=== PATIENT | female | born 1950 | race Caucasian/White ===

== ENCOUNTER → 2017-03-20 | Outpatient (CLI) | payer BC ==
--- NOTE | 2017-03-20 13:21 | REP ---
RIGHT HAND SERIES: There is no evidence of an acute fracture, dislocation or intrinsic bone disease. There is no radiopaque foreign body visualized in the soft tissues. IMPRESSION: No fracture or dislocation. There is no radiopaque foreign body visualized in the soft tissues. Signed by Enrique Paige MD 03/20/2017 04:27 P
== END ==
LOC: M ADAMS 12:18
PROVIDERS: ATTEND Physician Assistant
DX: S61.441A Puncture wound with foreign body of right hand, initial encounter (principal); W54.0XXA Bitten by dog, initial encounter; M76.41 Tibial collateral bursitis [Pellegrini-Stieda], right leg; Y93.89 Activity, other specified; Y99.8 Other external cause status; Y92.89 Other specified places as the place of occurrence of the external cause

== ENCOUNTER → 2018-01-23 | Outpatient (CLI) | payer BC, MEDICARE ==
[2018-01-23 14:02] LABS: AMORPHOUS SEDIMENT SMALL (NEGATIVE); APPEARANCE, URINE HAZY (CLEAR); BACTERIA, URINE AUTO 1+ (NEGATIVE); BILIRUBIN, URINE AUTO NEGATIVE (NEGATIVE); BLOOD, URINE BLOOD NEGATIVE (NEGATIVE); COLOR, URINE YELLOW (YELLOW); GLUCOSE, URINE (UA) AUTO NEGATIVE (NEGATIVE); KETONE, URINE AUTO NEGATIVE (NEGATIVE); LEUKOCYTE ESTERASE, URINE AUTO NEGATIVE (NEGATIVE); NITRITE, URINE AUTO NEGATIVE (NEGATIVE); PROTEIN, URINE AUTO NEGATIVE (NEGATIVE); RBC, URINE AUTO 1 /HPF (0-3); SPECIFIC GRAVITY URINE AUTO 1.015 (1.002-1.035); SQUAMOUS EPITHELIAL CELL UR AU 3 /HPF (0-6); UROBILINOGEN, URINE AUTO 0.2 mg/dL (0.0-2.0); WBC, URINE AUTO 0 /HPF (0-3)
== END ==
LOC: M LAB 11:07
DX: N39.0 Urinary tract infection, site not specified (principal)
CPT/HCPCS: 81001

== ENCOUNTER 2018-02-06 16:10 | Emergency (ER) | payer MEDICARE, BC ==
[2018-02-06 17:29] LABS: BASO % 0.1 % (0.0-1.0); EOS % 0.3 % (0.0-3.0); HEMATOCRIT 37.1 % (36.0-47.0); HEMOGLOBIN 12.5 g/dl (12.0-15.5); IMMATURE GRANULOCYTE % 0.5 % (0-3.0); LYMPH # 1.1 10^3/uL (1.5-4.5); LYMPH % 8.3 % (24.0-44.0); MEAN CORPUSCULAR HGB CONC 33.7 g/dl (32.0-36.5); MEAN CORPUSCULAR VOLUME 92.1 fl (80.0-96.0); MONO # 0.8 10^3/uL (0.0-0.8); NEUTROPHILS # 11.5 10^3/uL (1.8-7.7); NEUTROPHILS % 84.8 % (36.0-66.0); PLATELET COUNT, AUTOMATED 268 10^3/uL (150-450); RED BLOOD COUNT 4.03 10^6/uL (4.00-5.40); RED CELL DISTRIBUTION WIDTH 13.1 % (11.5-14.5); WHITE BLOOD COUNT 13.5 10^3/uL (4.0-10.0)
[2018-02-06] MEDS: ONDANSETRON 4MG/2ML VIAL (J2405) IV (17:44)
[2018-02-06] MEDS: NS 1,000 ML IV (17:44)
[2018-02-06] MEDS: FLEET OIL RETENTION ENEMA PR (17:48)
[2018-02-06 17:53] LABS: ALBUMIN 3.4 GM/DL (3.2-5.2); ALBUMIN/GLOBULIN RATIO 0.72 (1.00-1.93); ALKALINE PHOSPHATASE 114 U/L (45-117); ALT/SGPT 23 U/L (12-78); ANION GAP 9 MEQ/L (8-16); AST/SGOT 15 U/L (7-37); BILIRUBIN,TOTAL 0.9 MG/DL (0.2-1.0); BLOOD UREA NITROGEN 10 MG/DL (7-18); CALCIUM LEVEL 8.6 MG/DL (8.8-10.2); CARBON DIOXIDE LEVEL 24 MEQ/L (21-32); CHLORIDE LEVEL 105 MEQ/L (98-107); CREATININE FOR GFR 0.83 MG/DL (0.55-1.30); GLOMERULAR FILTRATION RATE > 60.0 (>45); GLUCOSE, FASTING 105 MG/DL (70-100); POTASSIUM SERUM 4.1 MEQ/L (3.5-5.1); SODIUM LEVEL 138 MEQ/L (136-145); TOTAL PROTEIN 8.1 GM/DL (6.4-8.2)
[2018-02-06] MEDS: MAGNESIUM CITRATE 300 ML BTL PO (18:09)
[2018-02-06] MEDS: ONDANSETRON 4 MG ORAL DISINTEGRATING TAB (Q0162 PER 1MG) PO (20:54)
[2018-02-06] MEDS: GOLYTELY SOLN 4000 ML BTL PO (20:54)
[2018-02-06] MEDS: LevoFLOXacin 500 MG TABLET PO (20:54)
== END 2018-02-06 20:56 | disposition home or self-care (01) ==
LOC: M ED 16:10
DX: K59.00 Constipation, unspecified (principal); I10 Essential (primary) hypertension; E78.00 Pure hypercholesterolemia, unspecified; Z79.890 Hormone replacement therapy; Z79.899 Other long term (current) drug therapy; Z79.82 Long term (current) use of aspirin; Z98.890 Other specified postprocedural states; Z87.891 Personal history of nicotine dependence
CPT/HCPCS: J2405

== ENCOUNTER → 2018-05-04 | Outpatient (CLI) | payer MEDICARE, BC ==
[2018-05-04 20:05] LABS: BASO % 0.3 % (0.0-1.0); EOS # 0.1 10^3/uL (0.0-0.50); EOS % 1.6 % (0.0-3.0); HEMATOCRIT 39.8 % (36.0-47.0); HEMOGLOBIN 13.3 g/dl (12.0-15.5); IMMATURE GRANULOCYTE % 0.3 % (0-3.0); LYMPH % 41.1 % (24.0-44.0); MEAN CORPUSCULAR HEMOGLOBIN 31.2 pg (27.0-33.0); MEAN CORPUSCULAR HGB CONC 33.4 g/dl (32.0-36.5); MEAN CORPUSCULAR VOLUME 93.4 fl (80.0-96.0); MONO # 0.6 10^3/uL (0.0-0.8); MONO % 7.4 % (0.0-5.0); NEUTROPHILS # 3.7 10^3/uL (1.8-7.7); NEUTROPHILS % 49.3 % (36.0-66.0); PLATELET COUNT, AUTOMATED 244 10^3/uL (150-450); RED BLOOD COUNT 4.26 10^6/uL (4.00-5.40); RED CELL DISTRIBUTION WIDTH 12.6 % (11.5-14.5); WHITE BLOOD COUNT 7.4 10^3/uL (4.0-10.0)
[2018-05-04 20:31] LABS: ALBUMIN 3.6 GM/DL (3.2-5.2); ALBUMIN/GLOBULIN RATIO 0.92 (1.00-1.93); ALKALINE PHOSPHATASE 109 U/L (45-117); ALT/SGPT 30 U/L (12-78); ANION GAP 7 MEQ/L (8-16); AST/SGOT 21 U/L (7-37); BILIRUBIN,TOTAL 0.4 MG/DL (0.2-1.0); BLOOD UREA NITROGEN 12 MG/DL (7-18); CARBON DIOXIDE LEVEL 32 MEQ/L (21-32); CHLORIDE LEVEL 103 MEQ/L (98-107); GLOMERULAR FILTRATION RATE > 60.0 (>45); GLUCOSE, FASTING 75 MG/DL (70-100); LIPASE 115 U/L (73-393); POTASSIUM SERUM 4.4 MEQ/L (3.5-5.1); SODIUM LEVEL 142 MEQ/L (136-145); TOTAL PROTEIN 7.5 GM/DL (6.4-8.2)
[2018-05-05 12:30] LABS: BACTERIA, URINE AUTO NEGATIVE (NEGATIVE); RBC, URINE AUTO 0 /HPF (0-3); SQUAMOUS EPITHELIAL CELL UR AU 1 /HPF (0-6); WBC, URINE AUTO 0 /HPF (0-3)
== END ==
LOC: M ADAMS 18:45
DX: R10.11 Right upper quadrant pain (principal)
CPT/HCPCS: 83690

== ENCOUNTER → 2019-02-26 | Outpatient (REF) | payer MEDICARE, BC ==
[~2019-02-26] MED LIST: ALL10TAB28 PO; ASPI81CH49 PO; COLA100C5 PO; DULC5TAB PO; ESTR2TAB2 PO; FLUO60TA6 PO; MAXA10TA15 PO; OMEP20CA3 PO; SIMV20TA2 PO; VALA1TAB2 PO; VITA2000 PO; WELLTAB40 PO; ZOFR4TAB14 PO
== END ==
LOC: M LAB REF 12:09
PROVIDERS: ATTEND Physician Assistant Medical
DX: M54.5 Low back pain (principal); Z79.82 Long term (current) use of aspirin

== ENCOUNTER 2019-03-24 20:21 | Emergency (ER) | payer MEDICARE, BC ==
[~2019-03-24] VITALS: Ht 165.1 cm; Wt 86.4 kg
[2019-03-24] MEDS ORDERED: AUGMENTIN 875 MG TAB PO ONE (23:00)
[2019-03-24] MEDS ORDERED: AUGM875T28 PO (23:50)
[2019-03-24 23:55] VITALS: BP 119/58
--- NOTE | 2019-03-25 08:14 | REP ---
Left forearm two views: There is no acute fracture or dislocation. There are no comparison studies in the film file. There is soft tissue edema adjacent to the distal ulna. T There are no calcifications or foreign bodies. Impression: Soft tissue edema at the distal ulna. No acute fracture. Electronically Signed by Enrique Clemens MD 03/25/2019 08:06 A
== END 2019-03-24 23:57 | disposition home or self-care (01) ==
LOC: M ED 20:21
DX: S51.812A Laceration without foreign body of left forearm, initial encounter (principal); W54.0XXA Bitten by dog, initial encounter; Y92.018 Other place in single-family (private) house as the place of occurrence of the external cause; Z79.899 Other long term (current) drug therapy; Z79.82 Long term (current) use of aspirin

== ENCOUNTER 2019-03-26 13:36 | Emergency (ER) | payer MEDICARE, BC ==
[~2019-03-26] VITALS: Ht 165.1 cm; Wt 86.4 kg
[~2019-03-26 13:36] MED LIST changes: +AUGM875T28 PO
[2019-03-26] MEDS ORDERED: LOSA50TA88 (13:48)
[2019-03-26 14:57] LABS: BASO % 0.3 % (0.0-1.0); EOS # 0.1 10^3/uL (0.0-0.50); EOS % 1.3 % (0.0-3.0); HEMATOCRIT 39.7 % (36.0-47.0); HEMOGLOBIN 13.4 g/dl (12.0-15.5); LYMPH # 2.2 10^3/uL (1.5-4.5); MEAN CORPUSCULAR HEMOGLOBIN 32.8 pg (27.0-33.0); MEAN CORPUSCULAR HGB CONC 33.8 g/dl (32.0-36.5); MEAN CORPUSCULAR VOLUME 97.3 fl (80.0-96.0); MONO # 0.4 10^3/uL (0.0-0.8); MONO % 6.7 % (0.0-5.0); NEUTROPHILS # 3.4 10^3/uL (1.8-7.7); NEUTROPHILS % 55.5 % (36.0-66.0); PLATELET COUNT, AUTOMATED 209 10^3/uL (150-450); RED BLOOD COUNT 4.08 10^6/uL (4.00-5.40); WHITE BLOOD COUNT 6.1 10^3/uL (4.0-10.0)
[2019-03-26 15:19] LABS: BLOOD UREA NITROGEN 17 MG/DL (7-18); C REACTIVE PROTEIN QUANTITATIV 1.35 MG/DL (0.00-0.30); CALCIUM LEVEL 8.7 MG/DL (8.8-10.2); CARBON DIOXIDE LEVEL 30 MEQ/L (21-32); CHLORIDE LEVEL 104 MEQ/L (98-107); CREATININE FOR GFR 0.84 MG/DL (0.55-1.30); GLOMERULAR FILTRATION RATE > 60.0 (>45); GLUCOSE, FASTING 113 MG/DL (70-100); POTASSIUM SERUM 3.8 MEQ/L (3.5-5.1); SODIUM LEVEL 140 MEQ/L (136-145)
[2019-03-26 15:37] LABS: ERYTHROCYTE SEDIMENTATION RATE 30 mm/hr (0-30)
[2019-03-26 17:27] VITALS: BP 122/75
[2019-03-26] MEDS ORDERED: CLINDAMYCIN 150 MG CAP PO ONE (18:30)
[2019-03-26] MEDS ORDERED: CLEO300C2 PO (18:33)
== END 2019-03-26 18:45 | disposition home or self-care (01) ==
LOC: M ED 13:36
DX: S51.852A Open bite of left forearm, initial encounter (principal); L08.9 Local infection of the skin and subcutaneous tissue, unspecified; W54.0XXA Bitten by dog, initial encounter; Y92.89 Other specified places as the place of occurrence of the external cause; I10 Essential (primary) hypertension; E78.5 Hyperlipidemia, unspecified; Z79.899 Other long term (current) drug therapy; Z79.2 Long term (current) use of antibiotics; Z79.890 Hormone replacement therapy; Z79.82 Long term (current) use of aspirin; Z90.710 Acquired absence of both cervix and uterus

== ENCOUNTER → 2019-07-24 | Outpatient (CLI) | payer MEDICARE, BC ==
[~2019-07-24] MED LIST changes: -ALL10TAB28 PO; +ALL10TAB29 PO; +CLEO300C2 PO; +LOSA50TA88; -OMEP20CA3 PO; +OMEP20CA4 PO
--- NOTE | 2019-07-24 09:56 | REP ---
Right shoulder: Three views. History: Pain in the right shoulder. Findings: The right glenohumeral and acromioclavicular joints are normally aligned. There is osteoarthritic hypertrophy at the AC joint. Periarticular soft tissues are unremarkable. No erosive changes seen. 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 No acute bony abnormality. Electronically Signed by Donovan Meade MD 07/24/2019 09:47 A
== END ==
LOC: M ADAMS 09:31
PROVIDERS: ATTEND Physician Assistant Medical
DX: M19.011 Primary osteoarthritis, right shoulder (principal)

== ENCOUNTER → 2019-11-26 | Outpatient (REF) | payer MEDICARE, BC ==
[~2019-11-26] MED LIST changes: +OMEP1CAP73 PO; -OMEP20CA4 PO; -SIMV20TA2 PO; +SIMV20TA22 PO; -VALA1TAB2 PO; +VALA1TAB5 PO
[2019-11-26 19:38] LABS: APPEARANCE, URINE HAZY (CLEAR); BACTERIA, URINE AUTO 1+ (NEGATIVE); BILIRUBIN, URINE AUTO NEGATIVE (NEGATIVE); BLOOD, URINE BLOOD NEGATIVE (NEGATIVE); COLOR, URINE YELLOW (YELLOW); GLUCOSE, URINE (UA) AUTO NEGATIVE (NEGATIVE); KETONE, URINE AUTO NEGATIVE (NEGATIVE); LEUKOCYTE ESTERASE, URINE AUTO NEGATIVE (NEGATIVE); MUCUS, URINE SMALL (NEGATIVE); NITRITE, URINE AUTO NEGATIVE (NEGATIVE); PROTEIN, URINE AUTO NEGATIVE (NEGATIVE); RBC, URINE AUTO 2 /HPF (0-3); SPECIFIC GRAVITY URINE AUTO 1.012 (1.002-1.035); SQUAMOUS EPITHELIAL CELL UR AU 9 /HPF (0-6); UROBILINOGEN, URINE AUTO 0.2 mg/dL (0.0-2.0); WBC, URINE AUTO 2 /HPF (0-3)
== END ==
LOC: M LAB REF 19:16
PROVIDERS: ATTEND Physician Assistant
DX: N39.0 Urinary tract infection, site not specified (principal)

== ENCOUNTER 2019-12-04 00:29 | Emergency (ER) | payer MEDICARE, BC ==
[~2019-12-04 00:29] MED LIST changes: -MIRA3350 PO
[2019-12-04 01:41] LABS: BASO % 0.3 % (0.0-1.0); EOS # 0.1 10^3/uL (0.0-0.5); EOS % 0.9 % (0.0-3.0); HEMATOCRIT 40.6 % (36.0-47.0); HEMOGLOBIN 13.6 g/dl (12.0-15.5); LYMPH # 2.1 10^3/uL (1.5-5.0); LYMPH % 20.4 % (24.0-44.0); MEAN CORPUSCULAR HEMOGLOBIN 31.6 pg (27.0-33.0); MEAN CORPUSCULAR HGB CONC 33.5 g/dl (32.0-36.5); MEAN CORPUSCULAR VOLUME 94.2 fl (80.0-96.0); MONO # 0.8 10^3/uL (0.0-0.8); MONO % 7.3 % (0.0-5.0); NEUTROPHILS # 7.3 10^3/uL (1.5-8.5); NEUTROPHILS % 70.9 % (36.0-66.0); PLATELET COUNT, AUTOMATED 247 10^3/uL (150-450); RED BLOOD COUNT 4.31 10^6/uL (4.00-5.40); WHITE BLOOD COUNT 10.3 10^3/uL (4.0-10.0)
[2019-12-04 02:21] LABS: BLOOD UREA NITROGEN 13 MG/DL (7-18); CALCIUM LEVEL 8.6 MG/DL (8.8-10.2); CARBON DIOXIDE LEVEL 29 MEQ/L (21-32); CHLORIDE LEVEL 102 MEQ/L (98-107); CK-MB VALUE MASS 1.3 NG/ML (<3.6); CPK CREATINE PHOSPHOKINASE 93 U/L (26-192); CREATININE FOR GFR 0.87 MG/DL (0.55-1.30); FREE T4 0.98 NG/DL (0.76-1.46); GLOMERULAR FILTRATION RATE > 60.0 (>45); GLUCOSE, FASTING 117 MG/DL (70-100); MAGNESIUM LEVEL 1.8 MG/DL (1.8-2.4); POTASSIUM SERUM 3.9 MEQ/L (3.5-5.1); SODIUM LEVEL 137 MEQ/L (136-145); TROPONIN I < 0.02 NG/ML (< 0.10)
[2019-12-04] MEDS: GASTROGRAFIN SOLUTION 30ML PO SCH ×2 (03:24→04:01)
[2019-12-04] MEDS ORDERED: ISOVUE-370 76% 100ML VIAL (Q9967) As Ordered ONE (04:52)
--- NOTE | 2019-12-04 05:39 | REPVR ---
PROCEDURE INFORMATION: Exam: CT Abdomen and Pelvis With Contrast Exam date and time: 12/04/19 (4:59am) Age: 69 years old Clinical indication: Generalized abdominal pain. Diverticulitis. TECHNIQUE: Imaging protocol: Computed tomography of the abdomen and pelvis with intravenous contrast. Radiation optimization: All CT scans at this facility use at least one of these dose optimization techniques: automated exposure control; mA and/or kV adjustment per patient size (includes targeted exams where dose is matched to clinical indication); or iterative reconstruction. Contrast material: Iso Contrast volume: 100 ml Contrast route: Antecubital vein COMPARISON: Abdominal series + CXR of 12/04/19 FINDINGS: Liver: Normal. No solid mass. Gallbladder and bile ducts: Normal. No calcified stones. No ductal dilatation. Pancreas: Normal. No ductal dilatation. Spleen: Normal. No splenomegaly. Adrenals: Normal. No mass. Kidneys and ureters: Normal. No hydronephrosis. Stomach and bowel: Unremarkable. No bowel to obstruction. No mucosal thickening. Appendix: No evidence of appendicitis. Intraperitoneal space: Unremarkable. No free air. No significant fluid collection. Vasculature: Unremarkable. No abdominal aortic aneurysm. Lymph nodes: Unremarkable. No enlarged lymph nodes. Bladder: Distended urinary bladder. No stones nor mass. Reproductive: Unremarkable as visualized. Bones/joints: Unremarkable. No acute fracture. Soft tissues: Unremarkable. IMPRESSION: No acute findings. No acute bowel pathology. No evidence of diverticulitis. Electronically signed by: Mirlande Merchant On 12/04/2019 05:38:58 AM
[2019-12-04 06:06] LABS: CK-MB VALUE MASS < 1.0 NG/ML (<3.6); CPK CREATINE PHOSPHOKINASE 73 U/L (26-192); MB/CK RELATIVE INDEX 1.37 (< OR =4); TROPONIN I < 0.02 NG/ML (< 0.10)
[2019-12-04] MEDS ORDERED: MIRA3350 PO (06:15)
[2019-12-04 06:42] VITALS: BP 128/71
--- NOTE | 2019-12-04 07:25 | ECGEPIP ---
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
--- NOTE | 2019-12-04 07:26 | ECGEPIP ---
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
--- NOTE | 2019-12-05 07:54 | REP ---
ABDOMINAL SERIES: Supine and erect views of the abdomen demonstrate no free air and no evidence for bowel obstruction. No dilated small bowel loops are seen. Moderate fecal material is seen in the left colon. Metallic clips are seen in the upper abdomen. There are mild degenerative changes of the spine. An accompanying view of the chest demonstrates no acute infiltrate. The heart is normal in size, and the mediastinal silhouette is unremarkable. IMPRESSION: No free air or obstruction. Electronically Signed by Enrique Paige MD 12/05/2019 06:00 P
== END 2019-12-04 06:44 | disposition home or self-care (01) ==
LOC: EDBD 00:29 → M ED 00:29
DX: R55 Syncope and collapse (principal); R19.4 Change in bowel habit; K59.00 Constipation, unspecified; R42 Dizziness and giddiness; R53.1 Weakness; I10 Essential (primary) hypertension; E78.00 Pure hypercholesterolemia, unspecified
CPT/HCPCS: 74021; 74177; 80048; 82040; 82550; 82553; 83735; 84439; 84443; 84484; 85025; 93005; 93041; 94760; 99285; Q9963; Q9967

== ENCOUNTER → 2019-12-04 | Outpatient (REF) | payer MEDICARE, BC ==
[~2019-12-04] MED LIST changes: +MIRA3350 PO
== END ==
LOC: M LAB REF 11:55
PROVIDERS: ATTEND Family Medicine
DX: E83.51 Hypocalcemia (principal)

== ENCOUNTER 2021-12-20 13:08 | Emergency (ER) | payer MEDICARE, BC ==
[~2021-12-20] VITALS: Ht 165.1 cm; Wt 90.7 kg
[~2021-12-20 13:08] MED LIST changes: -ALL10TAB29 PO; +CETI-24 PO; -ESTR2TAB2 PO; +ESTR2TAB3 PO; +LOSA50TA28; -LOSA50TA88; +MIRA3350 PO
[2021-12-20] MEDS ORDERED: LIDOCAINE 1% MDV 20ML VIAL SC ONE (19:10)
[2021-12-20] MEDS ORDERED: BOOSTRIX/ADACEL VACCINE (DIPHTH/PERTUSS/ACELL/TETANUS) 0.5ML SYR IM ONE (19:10)
[2021-12-20] MEDS ORDERED: NEOSPORIN OINT 0.9 GM PKT TOP ONE (19:50)
[2021-12-20] MEDS ORDERED: BACI500O8 TOP (20:01)
[2021-12-20 20:07] VITALS: BP 103/88
== END 2021-12-20 20:11 | disposition home or self-care (01) ==
LOC: M ED 13:08
DX: S61.412A Laceration without foreign body of left hand, initial encounter (principal); W26.8XXA Contact with other sharp object(s), not elsewhere classified, initial encounter; Y92.009 Unspecified place in unspecified non-institutional (private) residence as the place of occurrence of the external cause; Y93.9 Activity, unspecified; Y99.9 Unspecified external cause status

== ENCOUNTER 2022-07-19 15:22 | Emergency (ER) | payer MEDICARE, BC ==
[~2022-07-19] VITALS: Ht 165.1 cm; Wt 87.3 kg
[~2022-07-19 15:22] MED LIST changes: +BACI500O8 TOP
[2022-07-19] MEDS ORDERED: PHEN37.58 (15:39)
[2022-07-19] MEDS ORDERED: TOPI25TA10 (15:39)
[2022-07-19 16:26] LABS: BASO % 0.2 % (0.0-1.0); EOS # 0.2 10^3/uL (0.0-0.5); EOS % 1.9 % (0.0-3.0); HEMATOCRIT 41.2 % (36.0-47.0); HEMOGLOBIN 13.5 g/dl (12.0-15.5); LYMPH % 36.2 % (24.0-44.0); MEAN CORPUSCULAR HEMOGLOBIN 31.6 pg (27.0-33.0); MEAN CORPUSCULAR HGB CONC 32.8 g/dl (32.0-36.5); MEAN CORPUSCULAR VOLUME 96.5 fl (80.0-96.0); MONO # 0.5 10^3/uL (0.0-0.8); MONO % 5.8 % (2.0-8.0); NEUTROPHILS # 4.5 10^3/uL (1.5-8.5); NEUTROPHILS % 55.2 % (36.0-66.0); PLATELET COUNT, AUTOMATED 273 10^3/uL (150-450); RED BLOOD COUNT 4.27 10^6/uL (4.00-5.40); WHITE BLOOD COUNT 8.3 10^3/uL (4.0-10.0)
[2022-07-19] MEDS ORDERED: GI COCKTAIL 50ML BTL(HYOSCYAMINE/MAALOX/LIDOCAINE VISCOUS)(1:3:1) PO ONE (16:45)
[2022-07-19 16:53] LABS: CPK CREATINE PHOSPHOKINASE 136 U/L (26-192)
[2022-07-19 17:01] LABS: ALBUMIN 3.5 GM/DL (3.2-5.2); ALT/SGPT 30 U/L (12-78); BILIRUBIN,DIRECT 0.1 MG/DL (0.0-0.2); BILIRUBIN,TOTAL 0.3 MG/DL (0.2-1.0); BLOOD UREA NITROGEN 17 MG/DL (7-18); CALCIUM LEVEL 9.1 MG/DL (8.8-10.2); CARBON DIOXIDE LEVEL 27 MEQ/L (21-32); CHLORIDE LEVEL 104 MEQ/L (98-107); CREATININE FOR GFR 0.81 MG/DL (0.55-1.30); FREE T4 0.78 NG/DL (0.76-1.46); GLOMERULAR FILTRATION RATE > 60.0 (>39); GLUCOSE, FASTING 88 MG/DL (70-100); LIPASE 119 U/L (73-393); NT-PRO BNP 97 PG/ML (<125); POTASSIUM SERUM 3.9 MEQ/L (3.5-5.1); SODIUM LEVEL 135 MEQ/L (136-145); TOTAL PROTEIN 7.5 GM/DL (6.4-8.2)
[2022-07-19 17:46] LABS: CPK CREATINE PHOSPHOKINASE 108 U/L (26-192)
[2022-07-19 18:45] VITALS: BP 156/74
[2022-07-19] MEDS ORDERED: SUCR1SS PO (18:51)
[2022-07-19] MEDS ORDERED: OMEP-173 PO (18:51)
== END 2022-07-19 19:04 | disposition home or self-care (01) ==
LOC: M ED 15:22
DX: K29.70 Gastritis, unspecified, without bleeding (principal); K21.9 Gastro-esophageal reflux disease without esophagitis; I44.0 Atrioventricular block, first degree; I10 Essential (primary) hypertension; E78.5 Hyperlipidemia, unspecified; F41.9 Anxiety disorder, unspecified; F33.1 Major depressive disorder, recurrent, moderate; Z79.811 Long term (current) use of aromatase inhibitors; Z79.810 Long term (current) use of selective estrogen receptor modulators (SERMs); Z79.899 Other long term (current) drug therapy

== ENCOUNTER 2022-07-21 14:56 | Emergency (ER) | payer MEDICARE, BC ==
[~2022-07-21] VITALS: Ht 165.1 cm; Wt 88.2 kg
[~2022-07-21 14:56] MED LIST changes: +OMEP-173 PO; +PHEN37.58; +SUCR1SS PO; +TOPI25TA10
[2022-07-21 14:57] VITALS: BP 131/66
== END 2022-07-21 17:41 | disposition left against medical advice (07) ==
LOC: M ED 14:56
DX: Z53.21 Procedure and treatment not carried out due to patient leaving prior to being seen by health care provider (principal)

== ENCOUNTER → 2023-01-02 | Outpatient (CLI) | payer MEDICARE, BC | LOC: M RAD 08:29 | PROVIDERS: ATTEND Family Medicine | DX: F17.211 Nicotine dependence, cigarettes, in remission (principal) ==

== ENCOUNTER → 2023-06-05 | Outpatient (CLI) | payer MEDICARE, BC ==
[~2023-06-05] MED LIST changes: -MAXA10TA15 PO; +RIZA10TA66 PO
[2023-06-05 14:42] LABS: FREE T4 0.91 NG/DL (0.89-1.76)
[2023-06-05 14:43] LABS: THYROID STIMULATING HORMONE 2.502 uIU/ML (0.55-4.78)
[2023-06-05 14:47] LABS: FOLATE 20.12 NG/ML (>5.4); URIC ACID 5.1 MG/DL (3.1-7.8)
== END ==
LOC: M PLALAB 10:04
PROVIDERS: ATTEND Psychiatry & Neurology Neurology
DX: E07.9 Disorder of thyroid, unspecified (principal); E11.42 Type 2 diabetes mellitus with diabetic polyneuropathy; M10.9 Gout, unspecified; E53.8 Deficiency of other specified B group vitamins

== ENCOUNTER 2024-07-26 09:20 | Day surgery (SDC) | payer MEDICARE, BC ==
[~2024-07-26] VITALS: Ht 165.1 cm; Wt 85.4 kg
[~2024-07-26 09:20] MED LIST changes: +B6/F1CAP PO; +BIOT1CAP2 PO; +DAILTAB63 PO; -LOSA50TA28; +LOSA50TA28 PO; +LR 1,000 ML IV SCH; +MELO7.5T35 PO; +MONT10TA97 PO; +MOVE1TAB PO; +TIZA2TA PO; +TUME1CAP PO
[2024-07-26] MEDS ORDERED: MIDAZOLAM INJ 2MG/2ML VIAL As Ordered ONE (10:46)
[2024-07-26] MEDS ORDERED: fentaNYL 100 MCG/2 ML INJECTION As Ordered ONE (10:46)
[2024-07-26] MEDS: FLURBIPROFEN 0.03% OPHTH SOLN 2.5 ML OD SCH (10:59)
[2024-07-26] MEDS: ATROPINE SULFATE 1% OPHTH SOLN 2ML BTL OD SCH (10:59)
[2024-07-26] MEDS: PHENYLEPHRINE 2.5% OPHTH SOL 2ML OD SCH (10:59)
[2024-07-26] MEDS: TETRACAINE 0.5% OPHTH SOLN 4ML OD SCH (10:59)
[2024-07-26] MEDS: LIDOCAINE 1% SDV 5ML VIAL As Ordered ONE (12:05)
[2024-07-26] MEDS: CEFUROXIME 1MG/0.1ML INTRACAMERAL INJ As Ordered ONE (12:10)
[2024-07-26 12:30] VITALS: BP 159/78; TEMP 97; O2SAT 95
== END 2024-07-26 12:50 | disposition home or self-care (01) ==
LOC: M SDC 09:20
PROVIDERS: ATTEND Ophthalmology
DX: H25.11 Age-related nuclear cataract, right eye (principal); I10 Essential (primary) hypertension; E78.5 Hyperlipidemia, unspecified; K57.92 Diverticulitis of intestine, part unspecified, without perforation or abscess without bleeding; K21.9 Gastro-esophageal reflux disease without esophagitis; F41.9 Anxiety disorder, unspecified; F32.A Depression, unspecified; G43.909 Migraine, unspecified, not intractable, without status migrainosus; G47.33 Obstructive sleep apnea (adult) (pediatric); Z79.899 Other long term (current) drug therapy
CPT/HCPCS: 66984; J0697; J2250; J3010; V2632

== ENCOUNTER 2024-08-02 09:44 | Day surgery (SDC) | payer MEDICARE, BC ==
[~2024-08-02] VITALS: Ht 165.1 cm; Wt 86.2 kg
[~2024-08-02 09:44] MED LIST changes: +fentaNYL 100 MCG/2 ML INJECTION As Ordered ONE
[2024-08-02] MEDS: ATROPINE SULFATE 1% OPHTH SOLN 2ML BTL OS SCH (11:23)
[2024-08-02] MEDS: FLURBIPROFEN 0.03% OPHTH SOLN 2.5 ML OS SCH (11:23)
[2024-08-02] MEDS: TETRACAINE 0.5% OPHTH SOLN 4ML OS SCH (11:23)
[2024-08-02] MEDS: PHENYLEPHRINE 2.5% OPHTH SOL 2ML OS SCH (11:23)
[2024-08-02] MEDS: LIDOCAINE 1% SDV 5ML VIAL As Ordered ONE (12:53)
[2024-08-02] MEDS ORDERED: MIDAZOLAM INJ 2MG/2ML VIAL As Ordered ONE (12:53)
[2024-08-02] MEDS: CEFUROXIME 1MG/0.1ML INTRACAMERAL INJ As Ordered ONE (13:01)
[2024-08-02 13:10] VITALS: BP 125/60; TEMP 96.9; O2SAT 96
== END 2024-08-02 13:28 | disposition home or self-care (01) ==
LOC: M SDC 09:44
PROVIDERS: ATTEND Ophthalmology
DX: H25.12 Age-related nuclear cataract, left eye (principal); I10 Essential (primary) hypertension; E78.5 Hyperlipidemia, unspecified; K57.92 Diverticulitis of intestine, part unspecified, without perforation or abscess without bleeding; K21.9 Gastro-esophageal reflux disease without esophagitis; F41.9 Anxiety disorder, unspecified; F32.A Depression, unspecified; G43.909 Migraine, unspecified, not intractable, without status migrainosus; Z87.891 Personal history of nicotine dependence; Z79.899 Other long term (current) drug therapy
CPT/HCPCS: 66984; J0697; J2250; J3010; V2632

== ENCOUNTER → 2025-02-01 | Outpatient (CLI) | payer MEDICARE, BC ==
[~2025-02-01] MED LIST changes: -LR 1,000 ML IV SCH; +TOPI-256; -TOPI25TA10; -fentaNYL 100 MCG/2 ML INJECTION As Ordered ONE
== END ==
LOC: M SLEEP 20:00
PROVIDERS: ATTEND Physician Assistant
DX: G47.33 Obstructive sleep apnea (adult) (pediatric) (principal)

== ENCOUNTER → 2025-04-10 | Outpatient (CLI) | payer MEDICARE, BC | LOC: M SLEEP 20:00 | PROVIDERS: ATTEND Physician Assistant | DX: G47.33 Obstructive sleep apnea (adult) (pediatric) (principal) ==

== ENCOUNTER 2025-05-05 17:22 | Emergency (ER) | payer MEDICARE, BC ==
[2025-05-05 18:31] LABS: BASO # 0.0 10^3/uL (0.0-0.2); BASO % 0.3 % (0.0-1.0); EOS # 0.1 10^3/uL (0.0-0.5); EOS % 1.4 % (0.0-3.0); LYMPH # 1.7 10^3/uL (1.5-5.0); LYMPH % 24.0 % (24.0-44.0); MONO # 0.5 10^3/uL (0.0-0.8); MONO % 7.3 % (2.0-8.0); NEUTROPHILS # 4.8 10^3/uL (1.5-8.5); NEUTROPHILS % 66.9 % (36.0-66.0); PLATELET COUNT, AUTOMATED 220 10^3/uL (150-450)
[2025-05-05] MEDS: MORPHINE 4 MG/ML 1 ML VIAL IV PRN (18:32)
[2025-05-05] MEDS ORDERED: ISOVUE-370 76% 100 ML VIAL As Ordered ONE (18:33)
[2025-05-05 18:45] LABS: INR 0.94
[2025-05-05 19:07] LABS: ALT/SGPT 25 U/L (7.0-40); AST/SGOT 24 U/L (<34); CALCIUM LEVEL 8.6 MG/DL (8.3-10.6); CARBON DIOXIDE LEVEL 29 MMOL/L (20-31); CHLORIDE LEVEL 102 MMOL/L (98-107); CK-MB VALUE MASS 3.2 NG/ML (<3.6); CPK CREATINE PHOSPHOKINASE 112 U/L (34-145); CREATININE FOR GFR 0.83 MG/DL (0.55-1.30); GLOMERULAR FILTRATION RATE 74.9 (>39); MB/CK RELATIVE INDEX 2.85 (< OR =4); POTASSIUM SERUM 4.0 MMOL/L (3.5-5.1); SODIUM LEVEL 141 MMOL/L (136-145)
[2025-05-05 20:17] LABS: CK-MB VALUE MASS 4.4 NG/ML (<3.6)
[2025-05-05 20:19] LABS: CPK CREATINE PHOSPHOKINASE 123 U/L (34-145); MB/CK RELATIVE INDEX 3.57 (< OR =4)
[2025-05-05 21:25] VITALS: O2SAT 100
[2025-05-05 22:10] VITALS: BP 138/60; TEMP 97.8; O2SAT 95
== END 2025-05-05 22:10 | disposition home or self-care (01) ==
LOC: EDBD 17:22 → M ED 17:22
DX: S30.0XXA Contusion of lower back and pelvis, initial encounter (principal); W17.89XA Other fall from one level to another, initial encounter; M85.80 Other specified disorders of bone density and structure, unspecified site; M47.816 Spondylosis without myelopathy or radiculopathy, lumbar region; M25.78 Osteophyte, vertebrae; M51.34 Other intervertebral disc degeneration, thoracic region; M47.892 Other spondylosis, cervical region; M19.072 Primary osteoarthritis, left ankle and foot; M17.12 Unilateral primary osteoarthritis, left knee; M19.042 Primary osteoarthritis, left hand; F41.9 Anxiety disorder, unspecified; K21.9 Gastro-esophageal reflux disease without esophagitis; I10 Essential (primary) hypertension; E78.5 Hyperlipidemia, unspecified; G43.909 Migraine, unspecified, not intractable, without status migrainosus; E55.9 Vitamin D deficiency, unspecified; Z79.899 Other long term (current) drug therapy; Y92.007 Garden or yard of unspecified non-institutional (private) residence as the place of occurrence of the external cause; Y93.H2 Activity, gardening and landscaping; Y99.9 Unspecified external cause status
CPT/HCPCS: 70450; 71260; 72125; 72128; 72131; 73130; 73590; 74177; 80047; 80048; 80076; 82550; 82553; 84484; 85025; 85610; 85730; 93005; 93041; 94760; 96374; 99285; Q9967